=== PATIENT | male | born 1980 | race Caucasian/White ===

== ENCOUNTER 2016-10-17 16:27 | Inpatient (IN) | payer OTHER ==
[~2016-10-17] VITALS: Ht 175.3 cm; Wt 76.1 kg
[2016-10-17 19:50] VITALS: BP 125/84
[2016-10-17] MEDS ORDERED: LYRICA300 MG PO (20:29)
[2016-10-17] MEDS ORDERED: KLONOPIN0.5 M1 PO (20:30)
[2016-10-17] MEDS ORDERED: GABAPENTIN800 MG PO (20:34)
[2016-10-18 07:53] VITALS: BP 132/84
[2016-10-18 15:14] VITALS: BP 128/83
[2016-10-19 07:48] VITALS: BP 98/53
[2016-10-19 15:16] VITALS: BP 128/85
[2016-10-20 07:29] VITALS: BP 140/82
[2016-10-20 15:43] VITALS: BP 112/58
[2016-10-21 07:40] VITALS: BP 114/70
[2016-10-21] MEDS ORDERED: GABAPENTIN300 MG PO (09:35)
== END 2016-10-21 11:25 | disposition home or self-care (01) | DRG 880 ==
LOC: 1WEST 16:27
PROC: HZ2ZZZZ Detoxification Services for Substance Abuse Treatment (ICD-10-PCS; principal; 2016-10-17)
DX: F41.1 Generalized anxiety disorder (principal); F40.01 Agoraphobia with panic disorder; R45.851 Suicidal ideations; F10.230 Alcohol dependence with withdrawal, uncomplicated; G50.0 Trigeminal neuralgia; G44.009 Cluster headache syndrome, unspecified, not intractable
CPT/HCPCS: 97150 GO; 97165 GO